=== PATIENT | female | born 1980 | race Two or more races ===

== ENCOUNTER 2018-07-19 09:30 | Emergency (ER) | payer MEDICAID ==
[~2018-07-19] VITALS: Ht 154.9 cm; Wt 61.2 kg
[2018-07-19 11:29] LABS: Urine Bacteria NONE SEEN /hpf (None Seen); Urine Blood Negative /uL (Negative); Urine Specific Gravity 1.004 (1.001-1.035); Urine WBC <1 /hpf (0 - 5)
[2018-07-19 11:48] VITALS: BP 98/58
== END 2018-07-19 11:49 | disposition home or self-care (01) ==
LOC: ER 09:30
DX: J01.90 Acute sinusitis, unspecified (principal); B96.89 Other specified bacterial agents as the cause of diseases classified elsewhere
CPT/HCPCS: 81001; 81002